=== PATIENT | female | born 1990 | race Caucasian/White ===

== ENCOUNTER 2017-05-09 19:58 | Emergency (ER) | payer OTHER | END 2017-05-09 21:22 | disposition home or self-care (01) | LOC: ER 19:58 | DX: S60.458A Superficial foreign body of other finger, initial encounter (principal); J45.909 Unspecified asthma, uncomplicated; W27.8XXA Contact with other nonpowered hand tool, initial encounter; Y93.89 Activity, other specified; Y99.8 Other external cause status; Y92.89 Other specified places as the place of occurrence of the external cause | CPT/HCPCS: 73140; 99283; 99284 ==